=== PATIENT | male | born 1995 | race Caucasian/White ===

== ENCOUNTER 2017-12-29 02:21 | Emergency (ER) | payer OTHER ==
[~2017-12-29] VITALS: Ht 177.8 cm; Wt 99.1 kg
[~2017-12-29 02:21] MED LIST: ACETAMINOPHEN-1 EAC1 PO; AUGMENTIN 875875 MG PO; DOXYCYCLINE 10100 MG PO; IBUPROFEN 800800 M1 PO; KEFLEX500 MG PO; NAPROSYN500 MG PO; NOHOMEMEDICATIONS; NORCO 5-325 TA1 EACH PO; ZOFRAN 4 MG ORAL4 MG PO
[2017-12-29 02:55] LABS: ABSOLUTE BASOPHILS 0.1 thou/uL (0.0-0.2); ABSOLUTE EOSINOPHILS 0.2 thou/uL (0.0-0.7); ABSOLUTE LYMPHOCYTES 2.9 thou/uL (0.8-5.3); ABSOLUTE MONOCYTES 0.6 thou/uL (0.0-1.2); ABSOLUTE NEUTROPHILS 5.1 thou/uL (1.6-8.1); BASOPHILS 0.7 %; EOSINOPHILS 2.6 %; HEMATOCRIT 45.2 % (42.0-52.0); HEMOGLOBIN 15.7 gm/dL (14.0-18.0); MCH 30.1 pg (26.0-34.0); MCHC 34.7 g/dL (28.0-37.0); MCV 86.7 fL (80.0-100.0); MONOCYTES 6.9 %; MPV 8.9 fl. (7.2-11.1); NUCLEATED RBCS 0 /100WBC; PLATELET COUNT* 245 thou/uL (150-400); POLYS 56.8 %; RBC 5.21 mil/uL (4.50-6.00); RDW-CV 12.8 % (10.5-14.5); WBC 8.9 thou/uL (4.0-11.0)
[2017-12-29 03:02] LABS: CALCIUM 8.3 mg/dL (8.5-10.1); CREATININE 0.9 mg/dL (0.6-1.3); POTASSIUM 3.3 mmol/L (3.5-5.1)
[2017-12-29 03:07] LABS: ALBUMIN 3.9 g/dL (3.4-5.0); TOTAL BILIRUBIN 0.3 mg/dL (<0.1-1.0); TOTAL PROTEIN 7.8 g/dL (6.4-8.2)
[2017-12-29 03:24] LABS: AMP/METHAMP Negative (Negative); BARBITURATES Negative (Negative); BENZODIAZEPINES Negative (Negative); COCAINE Negative (Negative); METHADONE Negative (Negative); OPIATES Negative (Negative); PCP Negative (Negative); THC Negative (Negative)
[2017-12-29 08:31] VITALS: BP 118/64
--- NOTE | 2017-12-29 10:44 | EKG ---
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1995 Requested By: Amada Pino Order Number: [id number] MD: Mehul Heredia Measurements Intervals [place] Rate: 114 P: 53 RI: 153 QRS: 33 QRSD: 79 T: 39 QT: 302 QTc: 416 Interpretive Statements Sinus tachycardia Borderline T wave abnormalities Borderline ST elevation, anterior leads Compared to ECG 09/24/2016 12:30:36 T-wave abnormality now present ST (T wave) deviation now present Sinus rhythm no longer present Electronically Signed On 12-29-2017 10:44:22 CDT by Mehul Heredia [email or web address] <ELECTRONICALLY SIGNED> By: Mehul Heredia MD, [facility] 12/29/17 1044 0232 0232 Mehul Heredia MD, [facility] /EPI
== END 2017-12-29 08:31 | disposition home or self-care (01) ==
LOC: M.ERS 02:21
PROVIDERS: Emergency Medicine
DX: F10.129 Alcohol abuse with intoxication, unspecified (principal); Y90.7 Blood alcohol level of 200-239 mg/100 ml; R41.82 Altered mental status, unspecified; Z87.891 Personal history of nicotine dependence

== ENCOUNTER 2018-11-15 06:08 | Emergency (ER) | payer OTHER ==
[~2018-11-15] VITALS: Ht 180.3 cm; Wt 95.3 kg
[2018-11-15 06:16] VITALS: BP 117/79
== END 2018-11-15 06:58 | disposition home or self-care (01) ==
LOC: M.ERS 06:08
DX: T65.93XA Toxic effect of unspecified substance, assault, initial encounter (principal); Z87.891 Personal history of nicotine dependence

== ENCOUNTER 2020-07-13 19:10 | Emergency (ER) | payer OTHER ==
[~2020-07-13] VITALS: Ht 177.8 cm; Wt 81.7 kg
[2020-07-13] MEDS ORDERED: ZOLOFT (19:18)
[2020-07-13] MEDS ORDERED: HYDROXYZINE (19:18)
[2020-07-13] MEDS ORDERED: CIPRODEX OTIC7.5 ML OTIC (19:42)
[2020-07-13] MEDS ORDERED: CIPRO HC OTIC S10 ML OTIC (19:44)
[2020-07-13 19:45] VITALS: BP 139/72
== END 2020-07-13 19:45 | disposition home or self-care (01) ==
LOC: M.ERS 19:10
DX: H73.892 Other specified disorders of tympanic membrane, left ear (principal); Z87.891 Personal history of nicotine dependence